=== PATIENT | female | born 1990 | race Caucasian/White ===

== ENCOUNTER → 2016-12-31 | Outpatient (CLI) | payer OTHER ==
--- NOTE | 2016-12-31 10:44 | KCIC ---
EXAM: Bilateral knees, 2 views. HISTORY: Pain. COMPARISON: None. FINDINGS: Frontal and lateral views of the left knee are obtained. There is no fracture, fixation. No effusion is seen. IMPRESSION: No acute osseous finding. Electronically signed by: Nyasia Burr MD (12/31/2016 10:41 AM)
== END | disposition home or self-care (01) ==
LOC: KCIC 10:19
PROVIDERS: ATTEND Nurse Practitioner Family
DX: M25.561 Pain in right knee (principal); M25.562 Pain in left knee
CPT/HCPCS: 73560

== ENCOUNTER → 2017-10-08 | Outpatient (CLI) | payer OTHER | END | disposition home or self-care (01) | LOC: KCIC 14:21 | DX: S00.83XD Contusion of other part of head, subsequent encounter (principal); W21.07XD Struck by softball, subsequent encounter | CPT/HCPCS: 70150 ==